=== PATIENT | male | born 1975 | race Caucasian/White ===

== ENCOUNTER → 2017-07-14 | Day surgery (SDC) | payer OTHER ==
[~2017-07-14] VITALS: Ht 172.7 cm; Wt 88.0 kg
[~2017-07-14] MED LIST: CVS AIRSHIELD PO; MULTIVITAMINS1 EAC9 PO; PROBIOTIC1 EACH PO
--- NOTE | 2017-07-14 09:13 | Operative Report ---
Operative/Inv Procedure Report Surgery Date: 07/14/17 Name of Procedure: Bilateral vasectomy Pre-Operative Diagnosis: Request for sterilization Post-Operative Diagnosis: Same Estimated Blood Loss: scant Surgeon/Airline Mechanic: Stevan MCGRAW,Adolph Sales Anesthesia: TIVA Drains: none Specimens: R and L Vas Complications: none Condition: stable Operative Indication: This patient was seen in the office requesting a vasectomy. 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 In the office the vas was palpable bilaterally but was very difficult to manipulate up under the skin. Therefore suggested that this be done in the hospital with anesthesia. Operative/Procedure Note Note: The patient was taken to the operating room and identified. He was placed in supine position on the operating table and a timeout was executed appropriately with the patient awake. Total intravenous anesthesia was given. He was then prepped and draped in usual fashion for cystoscopy. A surgical pause was executed appropriately. With some difficulty the left vas deferens was palpated and manipulated under the skin on the left side of the scrotum. After infiltrating the area with local anesthesia, 1% lidocaine without epinephrine, a small incision was made overlying the area of the vas. Using blunt dissection the dissection was carried down to the level of the vas. An Allis clamp was used to grab the vas and pulled up out of the incision. The vas was skeletonized a combination of sharp and blunt dissection. Of note there was significant scar tissue in the area which made it difficult. 4 hemoclips were then placed on the vas, 2 proximally and 2 distally. A 1 cm section of vas was removed between the 2 sets of hemoclips. The edge of each vas was fulgurated with electrocautery. At this point any bleeding was stopped using electrocautery. No significant bleeding was noted at this time. The vas was placed back into the scrotum. The scrotal incision was then closed with interrupted sutures of 3-0 chromic. Next attention was turned to the right scrotum. Again the vas was difficult to feel as was on the left eventually was located manipulated up under the skin. A small incision was made overlying the vas and using blunt dissection of the vas was eventually freed up some of the surrounding tissues. It was grasped with an Allis clamp and pulled up out of the incision. The vas was further skeletonized. 4 hemoclips were then placed on the vas 2 proximally and 2 distally. A 1 cm segment between the hemoclips was then excised and the free edge of the vas fulgurated. Hemostasis was obtained using electrocautery. At this time no significant bleeding was noted. The vas was placed back into the scrotum. The scrotal skin was closed with 3-0 chromic interrupted sutures. Dermabond was placed on the scrotal incisions. The patient tolerated the procedure well and as completion was taken recovery room in stable condition. Findings: Scar tissue bilaterally within the scrotum making vasectomy difficult Discharge Disposition: Same Day Admissions
== END ==
LOC: STS 00:50
DX: Z30.2 Encounter for sterilization (principal)
CPT/HCPCS: J0690; J2250